=== PATIENT | female | born 1960 | race Caucasian/White ===

== ENCOUNTER 2018-07-02 08:00 | Outpatient (CLI) | payer OTHER | END 2018-07-02 23:59 | LOC: LAB.N 08:00 | PROVIDERS: ATTEND Family Medicine | DX: I48.0 Paroxysmal atrial fibrillation (principal) | CPT/HCPCS: 85610 ==

== ENCOUNTER 2018-07-07 08:00 | Outpatient (CLI) | payer OTHER ==
[2018-07-07 13:04] LABS: ALBUMIN 3.9 g/dL (3.2-5.5); ALBUMIN/GLOBULIN RATIO 1.3 (1.0-2.2); ALKALINE PHOSPHATASE 54 IU/L (42-121); ALT ALANINE AMINOTRANSFERASE 51 IU/L (10-60); AST ASPARTATE AMINOTRANSFERASE 45 IU/L (10-42); BILIRUBIN,TOTAL 0.8 mg/dL (0.2-1.0); BUN - BLOOD UREA NITROGEN 19 mg/dL (6-20); CALCIUM 9.5 mg/dL (8.5-10.3); CARBON DIOXIDE - CO2 27 mmol/L (21-32); CHLORIDE 102 mmol/L (101-111); CHOLESTEROL 147 mg/dL; CREATININE 0.5 mg/dL (0.4-1.0); GFR - MDRD 128 (>89); GLUCOSE 162 mg/dL (70-100); HDL CHOLESTEROL 58 mg/dL; LDL CHOLESTEROL,CALCULATED 60 mg/dL; SODIUM 138 mmol/L (135-145); VLDL CHOLESTEROL 29 mg/dL
[2018-07-07 13:05] LABS: CHOL/HDL RATIO 2.5 (<4.4)
[2018-07-07 13:09] LABS: HB2 TOTAL 14.6 g/dL; HEMOGLOBIN A1C 0.92 g/dL; HEMOGLOBIN A1C % 7.9 % (4.6-6.2)
[2018-07-07 13:10] LABS: MICROALBUM/CREATININE RATIO,UR 47.1 ug/mg (<30.0); MICROALBUMIN,URINE 7.3 mg/dL (0-300.0)
== END 2018-07-07 23:59 | disposition home or self-care (01) ==
LOC: LAB.N 08:00
PROVIDERS: ATTEND Family Medicine
DX: E11.9 Type 2 diabetes mellitus without complications (principal)
CPT/HCPCS: 36415; 80053; 80061; 82043; 82570; 83036; 83721

== ENCOUNTER 2018-08-02 08:00 | Outpatient (CLI) | payer OTHER | END 2018-08-02 23:59 | disposition home or self-care (01) | LOC: LAB.N 08:00 | PROVIDERS: ATTEND Family Medicine | DX: I48.0 Paroxysmal atrial fibrillation (principal) | CPT/HCPCS: 85610 ==

== ENCOUNTER 2019-04-27 11:21 | Outpatient (CLI) | payer OTHER ==
[2019-04-27 18:27] LABS: HB2 TOTAL 13.1 g/dL; HEMOGLOBIN A1C 0.75 g/dL; HEMOGLOBIN A1C % 7.4 % (4.6-6.2)
== END 2019-04-27 23:59 | disposition home or self-care (01) ==
LOC: LAB.N 11:21
PROVIDERS: ATTEND Family Medicine
DX: E11.9 Type 2 diabetes mellitus without complications (principal)
CPT/HCPCS: 36415; 83036

== ENCOUNTER 2020-01-20 12:07 | Outpatient (CLI) | payer OTHER ==
[2020-01-20 18:26] LABS: CREATININE,URINE 23.9 mg/dL
[2020-01-20 18:27] LABS: MICROALBUMIN,URINE < 0.2 mg/dL (0-300.0)
== END 2020-01-20 23:59 | disposition home or self-care (01) ==
LOC: LAB.WCP 12:07
PROVIDERS: ATTEND Family Medicine
DX: E11.9 Type 2 diabetes mellitus without complications (principal)
CPT/HCPCS: 36415; 80061; 82043; 82570; 83036; 83721

== ENCOUNTER 2020-07-09 16:51 | Outpatient (CLI) | payer OTHER | END 2020-07-09 16:52 | disposition home or self-care (01) | LOC: COV 16:51 | PROVIDERS: ATTEND Internal Medicine Gastroenterology | DX: Z01.812 Encounter for preprocedural laboratory examination (principal); K21.9 Gastro-esophageal reflux disease without esophagitis; R10.13 Epigastric pain; R13.10 Dysphagia, unspecified; Z20.822 Contact with and (suspected) exposure to COVID-19 ==